=== PATIENT | male | born 1975 | race Caucasian/White ===

== ENCOUNTER 2020-10-13 19:51 | Emergency (ER) | payer OTHER, SELFPAY ==
[2020-10-13 19:57] VITALS: BP 170/114; PULSE 90; RESP 18; TEMP 36.7; O2SAT 98; BMI 36.9
--- NOTE | 2020-10-13 20:23 | CTR_ITS ---
PROCEDURE INFORMATION: Exam: CT Abdomen And Pelvis With Contrast Exam date and time: 10/13/2020 8:45 PM Age: 45 years old Clinical indication: Abdominal pain; Generalized; Prior surgery; Surgery type: Appy; Patient HX: Diffuse abd pain with diarrhea; Additional info: Pancreatitis vs sbo TECHNIQUE: Imaging protocol: Computed tomography of the abdomen and pelvis with intravenous contrast. Radiation optimization: All CT scans at this facility use at least one of these dose optimization techniques: automated exposure control; mA and/or kV adjustment per patient size (includes targeted exams where dose is matched to clinical indication); or iterative reconstruction. Contrast material: OMNI 300; Contrast volume: 95 ml; Contrast route: INTRAVENOUS (IV); COMPARISON: No relevant prior studies available. RADIATION DOSE METRICS: Total DLP (mGy-cm): 1896.23 FINDINGS: Liver: Normal. No mass. Gallbladder and bile ducts: Multiple gallstones within the gallbladder. Pancreas: Normal. No ductal dilation. Spleen: Normal. No splenomegaly. Adrenal glands: Normal. No mass. Kidneys and ureters: Normal. No hydronephrosis. Stomach and bowel: Mild bowel wall thickening in small bowel with mild congestion of the central mesenteric vascularity suggesting mild diffuse enteritis. Moderate diverticulosis. Appendix: No evidence of appendicitis. Intraperitoneal space: Unremarkable. No free air. No significant fluid collection. Vasculature: Unremarkable. No abdominal aortic aneurysm. Lymph nodes: Unremarkable. No enlarged lymph nodes. Urinary bladder: Unremarkable as visualized. Reproductive: Unremarkable as visualized. Bones/joints: Unremarkable. No acute fracture. Soft tissues: Unremarkable. CT/CT abdomen pelvis w con* [id number] IMPRESSION: 1. Multiple gallstones within the gallbladder. 2. Mild bowel wall thickening in small bowel with mild congestion of the central mesenteric vascularity suggesting mild diffuse enteritis. Radiation Dose CTDIVOL = (mGy): DLP = 1896.23 (mGy-cm)
--- NOTE | 2020-10-13 20:23 | W.ED.ABDPA2 ---
HPI - Abdominal Pain General: Chief Complaint: Abdominal Pain Stated Complaint: phy ref/bowel obstruction Time Seen by Provider: 10/13/20 20:03 Source: patient and family (spouse) Mode of arrival: ambulatory Limitations: no limitations History of Present Illness: HPI narrative: 45-year-old male patient presents to the emergency department due to abdominal pain. He reports abdominal pain, stomach pain for 1 week starting 10/08/2020; he reports onset of nausea that started this morning along with diarrhea, has experienced 6 episodes today.; he is employed by [employer] near [facility]; went to urgent care earlier today due to abdominal pain and was referred to the ED here in [place] for further work-up. He has previous history of appendicitis with appendectomy. He has not ate today, has attempted to drink several sips of coffee despite continued nausea. He denies fever or chills; he reports abdominal distention/bloating since abdominal pain began. He states was administered a GI cocktail today and is requesting another dose as this was helpful with his pain. He lives in [place]; serology work-up is available to me from [place].; lipase was noted to be 1246; CBC with white blood count 13.27; x-ray of the abdomen revealed abnormal bowel gas pattern with question of an early or incomplete small bowel obstruction. He states has been tested several times for Covid since abdominal pain began as he thought he could be infected; Covid screen completed today, rapid screen negative; results are not available in paper format. MD elicited complaint: abdominal pain (RUQ, middle abdomen) Onset (ago): day(s) (7) Location: Epigastric, Periumbilical and RUQ Severity: moderate Quality: cramping and sharp Migration to: RUQ Exacerbating factors: eating Relieving factors: rest Associated Symptoms: Reports anorexia, belching, bloating, chills, GI cramping, diarrhea, dyspepsia, heartburn, nausea and vomiting; Denies dysuria, fever(s), hematemesis and melena Treatments prior to arrival: antacids Review of Systems General: Reports: 10 or more systems reviewed and unremarkable except in HPI and below Const: Reports: chills; Denies: fever(s), fatigue, malaise or diaphoresis Eyes: Denies: blurry vision or eye redness ENMT: Denies: throat pain, dental pain or disequilibrium Card: Denies: chest pain, palpitations or irregular heart rhythm Resp: Denies: dyspnea, productive cough, non-productive cough or wheezing GI: Reports: abdominal pain, nausea, vomiting, heartburn, diarrhea, bloating, GI cramping and belching; Denies: hematemesis, early satiety, pain on defecation, rectal itching or melena : Denies: flank pain, dysuria, urinary urgency or difficulty starting urination Musc: Denies: neck pain, back pain, joint pain, muscle cramps or muscle weakness Skin/Breast: Denies: rash or pruritus Neuro: Denies: headache(s), weakness in extremities or behavioral changes Psych: Denies: anxiety, depression, hopelessness or irritability Saulo/Lymph: Denies: easy bruising PFSH ED PFSH: Medical History History of hemorrhoids HTN (hypertension) Surgical History History of appendectomy Social History (Updated 10/13/20 @ 20:34 by LESLIE Yo) Alcohol intake: current Alcohol intake frequency: 0-2 Drinks per Day Alcohol type: beer Caregiver/support person: Yes Lives independently: Yes Household members: spouse Housing: House Marital status: Physical Exam Const: COMMON NORMALS: no acute distress, average body habitus, patient oriented x3, healthy appearing and alert EXAM LIMITATIONS: no altered mental status, no behavioral limitations and no physical limitations GENERAL APPEARANCE: cooperative, comfortable, well kempt, well developed and well hydrated; not anxious, not combative and not ill appearing NUTRITIONAL APPEARANCE: obese ORIENTATION/CONSCIOUSNESS: Yes awake, Yes oriented to person, Yes oriented to place and Yes oriented to time; not confused and not patient obtunded HENMT: COMMON NORMALS: normocephalic, atraumatic, Normal external nose present and moist oral mucous membranes HEAD & SCALP: normal to inspection, normocephalic and atraumatic FACE & SINUS: normal facial exam and face symmetric; no sinus tenderness NOSE: Normal external nose present MOUTH: Normal oral and palatal mucosa present and tongue normal THROAT: posterior oropharynx normal and uvula midline Eye: COMMON NORMALS: Equal, round and reactive pupils present and EOMs intact bilaterally GENERAL EYE: appearance normal, both eyes and all related structures PUPIL: Yes Equal, round and reactive pupils present Neck/C-Spine: COMMON NORMALS: full ROM, no lymphadenopathy and supple GENERAL: Yes normal visual inspection and Yes trachea midline CERVICAL SPINE: Yes cervical ROM normal Lymph: LYMPHATIC: no lymphadenopathy noted Chest: COMMONS NORMALS: normal inspection of the chest and normal palpation of entire chest wall CHEST: No localized rib tenderness with anteroposterior compression Resp: COMMON NORMALS: normal respiratory effort, No retractions, No use of accessory muscles and clear to auscultation bilaterally EFFORT & INSPECTION: Yes able to speak in complete sentences, No respiratory distress, No pursed lip breathing, No labored and No audible wheezes AUSCULTATION: clear to auscultation bilaterally Cardio: COMMON NORMALS: regular rate, regular rhythm, S1 normal heart sound present, S2 normal heart sound present and Peripheral pulses 2+ throughout PALPATION: normal PMI RATE: regular rate RHYTHM: regular rhythm HEART SOUNDS: S1 normal heart sound present and S2 normal heart sound present PERIPHERAL PULSES: Peripheral pulses 2+ throughout GI: COMMON NORMALS: Soft to palpation INSPECTION: Yes normal to inspection, No abdominal wall ecchymosis, Yes central obesity, Yes scar and No striae AUSCULTATION: Yes Hypoactive bowel sounds present PALPATION: Yes Soft to palpation, Yes Tenderness to palpation present (GI) Details: LUQ and RUQ, No Hernia present, No Abdominal wall crepitus present and Yes Other GI palpation findings present (Positive Carmona's) : COMMON NORMALS: Yes no CVA tenderness BLADDER/KIDNEY EXAM: Yes no CVA tenderness Back/Pelvis: COMMON NORMALS: no CVA tenderness and thoracic and lumbar spine normal to inspection Extremity: COMMON NORMALS: normal to inspection and capillary refill normal Neuro: COMMON NORMALS: patient oriented x3 and no focal motor deficits SENSORIUM/ORIENTATION: Yes alert, Yes oriented to person, Yes oriented to place and Yes oriented to time Psych: COMMON NORMALS: mental status grossly normal, Normal thought process present and cooperative APPEARANCE: Yes well kempt ACTIVITY/MOTOR BEHAVIOR: Yes appropriate eye contact THOUGHT PROCESS: Normal thought process present Skin: COMMON NORMALS: no rashes or lesions noted and turgor normal GENERAL SKIN EXAM: no rashes or lesions noted and turgor normal Course Consultations: Consultation #1: Dr Moreno, 2050 - case discussed including findings from [facility] in [facility]; CT scan along with abnormal lab findings discussed. Advised patient may follow-up as an outpatient since he is improving; reports with CT findings of enteritis, states enteritis could be culprit of abdominal pain. Time: 20:50 Vital Signs: Vital signs: Vital Signs Temperature 98.1 F 10/13/20 19:57 Pulse Rate 74 10/13/20 22:47 Respiratory Rate 18 10/13/20 22:47 Blood Pressure 154/104 10/13/20 22:47 Pulse Oximetry 98 10/13/20 22:47 MDM - Abdominal Pain MDM Narrative: Medical decision making narrative: 45-year-old male patient presents to the emergency department with 1 week history of abdominal pain. Medical records from [facility] out of [facility] reviewed with abnormal lipase findings of 1246. KUB x-ray of the abdomen revealed questionable early or incomplete small bowel obstruction; lipase here in the ED slightly elevated 176; white blood count elevated 14.6; hemoglobin and hematocrit slightly elevated suggestive of mild dehydration; CT scan of the abdomen did not reveal acute pancreatitis; gallstones of the gallbladder noted along with mild bowel wall thickening and small bowel with mild congestion of the central mesenteric vascularity suggestive of mild diffuse enteritis; patient was administered Zofran here in the ED; resolution of abdominal pain and feeling better after Zofran administered. He is wanting to go home, does not wish to stay; spouse is at bedside and states he will rest well at home. I discussed with Dr. Moreno findings; advised patient may follow-up as an outpatient and considers enteritis most likely cause of abdominal pain he has experienced. Lipase could be variable. Patient will be discharged home with prescription of Zofran; advised to return to emergency department if he developed worsening abdominal pain; will send home on clear liquid diet along with bland diet and avoidance of alcohol. Differential Diagnosis: Differential diagnosis abdominal pain: Likely abdominal pain and gastroenteritis Medical Records: Attestation: I reviewed the patient's medical records. Lab Data: Attestation: I reviewed the patient's lab results. Labs: Lab Results 10/13/20 10/13/20 10/13/20 Range/Units 20:40 20:45 20:45 WBC 14.6 H (4.0-10.0) 10^3/ uL RBC 6.15 H (4.1-5.3) 10^6/u L Hgb 17.5 H (11.7-16.6) g/dL Hct 53.3 H (42.0-52.0) % MCV 86.7 (80-94) fL MCH 28.5 (28.0-34.0) pg MCHC 32.8 (30.0-36.0) g/dL RDW 14.1 (12.1-15.1) % Plt Count 299 (130-400) 10^3/c mm MPV 10.5 H (7.4-10.4) fL Neut % (Auto) 68.2 % Lymph % (Auto) 20.5 % [place] % (Auto) 7.8 % Eos % (Auto) 2.2 % Baso % (Auto) 0.6 % Neut # (Auto) 9.94 H (1.8-7.7) 10^3/u L Lymph # (Auto) 3.0 (0.8-4.8) 10^3/u L [place] # (Auto) 1.1 H (0.2-0.9) 10^3/u L Eos # (Auto) 0.3 (0.0-0.8) 10^3/u L Baso # (Auto) 0.1 (0.0-0.1) 10^3/u L Nucleated RBC % (a uto) 0 % Nucleated RBCs # 0.0 /100WBC Sodium 139 (136-145) mmol/L Potassium 3.8 (3.5-5.1) mmol/L Chloride 103 (98-107) mmol/L Carbon Dioxide 24 (22-29) mmol/L Anion Gap 15.8 (5-19) BUN 9 (6-20) mg/dL Creatinine 0.9 (0.7-1.2) mg/dL GFR Calculation 90.4 (90-130) mL/min Glucose 97 (65-115) mg/dL Calculated Osmolal ity 287 (285-295) mOsm/k g Calcium 8.8 (8.5-10.5) mg/dL Total Bilirubin 1.2 (0.15-1.2) mg/dL AST 33 (0-40) U/L ALT 72 H (0-41) U/L Alkaline Phosphata se 62 (40-130) IU/L Total Protein 7.3 (6.6-8.7) g/dL Albumin 4.2 (3.5-5.2) g/dL Globulin 3.1 (1.3-4.6) g/dL Lipase 174 H (13-60) U/L Urine Color Dark yellow (Yellow) Urine Appearance Clear (CLEAR) Urine pH 5.0 (5-7) Ur Specific Gravit y 1.030 (1.005-1.030) Urine Protein Trace (Negative) Urine Glucose (UA) Norm (Normal) Urine Ketones Negative (Negative) Urine Blood Neg (Negative) Urine Nitrate Negative (Negative) Urine Bilirubin Neg (Negative) Urine Urobilinogen Norm (Negative) mg/dL Ur Leukocyte Velma ase Negative (Negative) EKG Data ^: EKG 1: EKG interpretation date: 10/13/20 EKG interpretation time: 20:35 Prior EKG tracings: not available for review Other EKG comments: Ventricular rate 91; sinus rhythm; moderate voltage criteria for LVH, consider normal variant Discharge Plan Discharge Patient Disposition: Home Clinical Impression: Gastroenteritis Abdominal pain Qualifiers: Abdominal location: epigastric Qualified Code(s): R10.13 - Epigastric pain Cholelithiasis Qualifiers: Cholelithiasis location: gallbladder Cholecystitis presence: without cholecystitis Biliary obstruction: without biliary obstruction Qualified Code(s): K80.20 - Calculus of gallbladder without cholecystitis without obstruction Condition: Stable Prescriptions: New Zofran 4 mg tablet 4 mg PO Q4H 5 Days Qty: 14 RF: 0 Flagyl 500 mg tablet 500 mg PO TID 10 Days Qty: 30 RF: 0 ciprofloxacin HCl 500 mg tablet 500 mg PO BID Qty: 20 RF: 0 [facility] 10 billion cell -200 mg capsule 1 cap PO BID Qty: 30 RF: 0 pantoprazole 40 mg tablet,delayed release (DR/EC) 40 mg PO DAILY Qty: 14 RF: 0 Discharge Orders: Discharge ED (Routine); Ordered 10/13/20 Ordered By: Andreia Humphrey Discharge Diet: Advance as tolerated and Clear Liquid Discharge Activity: Limit activity as instructed Patient Instructions: Cholecystitis (ED), Clear Liquid Diet (ED), Abdominal Pain (ED) Activity Restrictions/Additional Instructions: Return to the emergency department if you develop worsening abdominal pain, nausea vomiting despite use of Zofran or other concerning symptoms public services assistant will be contacting you with a follow-up appointment with surgical services in regards to gallstones Take antibiotics until all gone, even if feeling better Clear liquid diet then advance as tolerated; avoid fried fatty greasy spicy foods until follow-up with surgical services has been completed No alcohol at all costs. Cannot use alcohol with use of Flagyl. Stand Alone Forms: Work/School Release Coding Level of Care Code ED Diathermy Equipment Repairer for Gianluca Fwd Exam Comprehensive
--- NOTE | 2020-10-13 20:26 | ECG_ITS ---
[facility] Test Date: 2020-10-13 Pat Name: Ronan Kenyon Department: Room: Gender: Male Human Resources Talent Manager: : 1975 Requested By: Andreia Mendez Order Number: [id number] Brady MD: Saad Aguilar M.D. Measurements Intervals [place] Rate: 91 P: 38 FL: 157 QRS: -14 QRSD: 90 T: 76 QT: 326 QTc: 402 Interpretive Statements SINUS RHYTHM MODERATE VOLTAGE CRITERIA FOR LVH, CONSIDER NORMAL VARIANT [MEETS CRITERIA IN ONE OF: R(aVL), S(V1), R(V5), R(V5/V6)+S(V1)] POSSIBLE ANTERIOR MYOCARDIAL INFARCTION , OF INDETERMINATE AGE [30 ms Q WAVE IN V3/V4, OR R < 0.2 mV IN V4] No previous ECG available for comparison Electronically Signed On 10-14-2020 19:13:30 EDUCATIONAL TECHNOLOGY SPECIALIST by Saad Aguilar M.D. [id number]
[2020-10-13 20:46] VITALS: BP 171/117; PULSE 92; RESP 18; O2SAT 99
[2020-10-13] MEDS: iohexol 300 mg/mL 100 mL Btl IV (20:46)
[2020-10-13] MEDS: ondansetron 2 mg/ML SDV 2 mL 4 MG IVP (20:47)
[2020-10-13 20:49] LABS: Add Urine Microscopic? NO
[2020-10-13] MEDS: sodium chloride 0.9% 500 ML 999 ML IV (20:49)
[2020-10-13 20:51] LABS: Bilirubin Urine Neg (Negative); Blood Urine Neg (Negative); Glucose Urine UA Norm (Normal); Ketones Urine Negative (Negative); Leukocyte Esterase Urine Negative (Negative); Nitrate Urine Negative (Negative); Protein Urine Trace (Negative); Urine Appearance Clear (CLEAR); Urine Color Dark Yellow (Yellow); Urobilinogen Urine Norm (Negative)
[2020-10-13 20:55] LABS: Basophils # 0.1 10^3/uL (0.0-0.1); Basophils % 0.6 %; Eosinophils # 0.3 10^3/uL (0.0-0.8); Eosinophils % 2.2 %; Hematocrit 53.3 % (42.0-52.0); Hemoglobin 17.5 g/dL (11.7-16.6); Lymphocytes % 20.5 %; Mean Corpuscular HGB Conc 32.8 g/dL (30.0-36.0); Mean Corpuscular Hemoglobin 28.5 pg (28.0-34.0); Mean Corpuscular Volume 86.7 fL (80-94); Mean Platelet Volume 10.5 fL (7.4-10.4); Monocytes # 1.1 10^3/uL (0.2-0.9); Monocytes % 7.8 %; Neutrophils # 9.94 10^3/uL (1.8-7.7); Neutrophils % 68.2 %; Nucleated Red Blood Cells % 0 %; Platelet Count 299 10^3/cmm (130-400); Red Blood Count 6.15 10^6/uL (4.1-5.3); Red Cell Distribution Width 14.1 % (12.1-15.1); White Blood Count 14.6 10^3/uL (4.0-10.0)
[2020-10-13 21:16] LABS: Alanine Aminotransferase 72 U/L (0-41); Albumin Level 4.2 g/dL (3.5-5.2); Alkaline Phosphatase 62 IU/L (40-130); Anion Gap 15.8 (5-19); Aspartate Amino Transferase 33 U/L (0-40); Blood Urea Nitrogen 9 mg/dL (6-20); Calcium 8.8 mg/dL (8.5-10.5); Carbon Dioxide 24 mmol/L (22-29); Chloride 103 mmol/L (98-107); Globulin 3.1 g/dL (1.3-4.6); Glomerular Filtration Rate 90.4 mL/min (90-130); Glucose 97 mg/dL (65-115); Lipase 174 U/L (13-60); Osmolality Calculated 287 mOsm/kg (285-295); Potassium 3.8 mmol/L (3.5-5.1); Sodium 139 mmol/L (136-145); Total Bilirubin 1.2 mg/dL (0.15-1.2); Total Protein 7.3 g/dL (6.6-8.7)
[2020-10-13 21:56] VITALS: BP 137/97; PULSE 76; RESP 16; O2SAT 97
[2020-10-13] MEDS: ciprofloxacin 500 mg Tablet PO (22:41)
[2020-10-13] MEDS: metroNIDAZOLE 500 MG Tablet PO (22:41)
[2020-10-13 22:47] VITALS: BP 154/104; PULSE 74; RESP 18; O2SAT 98
--- NOTE | 2020-10-17 15:29 | DCPLANNER ---
beauty shop manager had message to schedule a follow up appointment for patient with general surgery. beauty shop manager emailed patients information to Jaylyn at [facility] General Surgery. Patients information will be printed and reviewed. Clinic will call patient with appointment information.
--- NOTE | 2020-10-18 07:48 | DCPLANNER ---
Patient has a follow up appointment scheduled for Sunday, October 18, 2020 at 3:[address] Lopez. Clinic will call patient with appointment information.
--- NOTE | 2020-11-04 14:58 | DCPLANNER ---
Patient had a follow up appointment for patient with general surgery - patient did attend appointment.
== END 2020-10-13 22:49 | disposition home or self-care (01) ==
PROVIDERS: Emergency Provider Nurse Practitioner Family
DX: K80.20 Calculus of gallbladder without cholecystitis without obstruction (principal); K52.9 Noninfective gastroenteritis and colitis, unspecified; I10 Essential (primary) hypertension
CPT/HCPCS: 12345; 74177; 80053; 81003; 83690; 85025; 93005; 96374; 99283; J2405; J7040; Q9967

== ENCOUNTER → 2020-10-28 16:02 | Outpatient (BNVA) | payer OTHER, SELFPAY | PROVIDERS: Visit Provider Surgery | DX: Z01.812 Encounter for preprocedural laboratory examination (principal); K80.20 Calculus of gallbladder without cholecystitis without obstruction | CPT/HCPCS: 87635 ==

== ENCOUNTER 2020-11-02 07:06 | Day surgery (SDC) | payer OTHER, SELFPAY ==
[2020-11-01 10:51] VITALS: BMI 35.5
[2020-11-02] VITALS (7 sets, daily range): BP systolic 105–158; BP diastolic 51–88; PULSE 64–98; RESP 14–20; TEMP 36.6–36.8; O2SAT 92–100
[2020-11-02] MEDS: sodium chloride 0.9% 1,000 ML 30 ML IV (07:57)
--- NOTE | 2020-11-02 08:59 | W.PM.OPSUD ---
Surgery/Procedure H&P Update DATE OF PROCEDURE: November 02, 2020 DATE H&P PERFORMED: 10/18/19 H&P UPDATE INFORMATION: I have reviewed H&P completed within last 30 days, I have examined patient prior to procedure and No changes to prior documentation PREOP DIAGNOSIS: Cholelithiasis PLANNED PROCEDURE: Operation Date: 11/02/20 08:40 Proposed Procedures p Laparoscopic Cholecystectomy 22633 K80.20(Not Applicable) - Misbah Lopez MD
--- NOTE | 2020-11-02 09:08 | ANES.PREANE2 ---
Pre-Anesthetic Assessment Pre-Anesthetic Assessment: Height/Weight: Height 1.8 m Weight 115.666 kg Temp Pulse Resp BP Pulse Ox 97.9 F 98 18 158/62 100 11/02/20 07:58 11/02/20 07:58 11/02/20 07:58 11/02/20 07:58 11/02/20 07:58 Preop Diagnosis: Cholelithiasis Proposed Procedure: Operation Date: 11/02/20 08:40 Proposed Procedures p Laparoscopic Cholecystectomy 35706 K80.20(Not Applicable) - Misbah Lopez MD Was Beta Esan taken within 24 hours: N/A Last intake: Intake Last Liquid Date 11/01/20 Last Liquid Time 23:00 Last Solid Date 11/01/20 Last Solid Time 18:00 Social: Social History: No alcohol and No tobacco Exam: Pre-Anes Outpt Exam: alert, oriented x 3, clear to auscultation bilaterally and regular rate & rhythm Airway: Submandibular: WNL Cervical ROM: WNL MP: 2 Dentition: Full GI: GI: GERD Metabolic: Metabolic: Morbid obesity Anesthetic Plan: ASA status: 3 Anesthesia: General Risk of > 500 ml blood loss (7ml/kg in children): No Meds/Allergies Current Medications: Current Medications Generic Name Dose Route Start Last Admin Trade Name Freq PRN Reason Stop Dose Admin Sodium Chloride 1,000 mls @ 30 ml s/hr 11/02/20 07:15 11/02/20 07:57 Sodium Chloride 0.9% IV 11/03/20 07:14 30 mls/hr .Q24H STACIE Administration PFSH Anesthesia PFSH: Medical History History of hemorrhoids HTN (hypertension) Surgical History History of appendectomy Social History (Updated 10/13/20 @ 20:34 by LESLIE Yo) Alcohol intake: current Alcohol intake frequency: 0-2 Drinks per Day Alcohol type: beer Caregiver/support person: Yes Lives independently: Yes Household members: spouse Housing: House Marital status: Data Anesthesia Cardiac Studies: No Data to Display
--- NOTE | 2020-11-02 10:45 | PM.OP ---
Operative Report Date of procedure: November 02, 2020 Pre-op Diagnosis: Cholelithiasis Post-op diagnosis: same Procedure Done: Laparoscopic cholecystectomy Surgeon: Misbah Lopez Anesthesia: General Condition: stable Disposition: PACU Procedure: The patient was taken to the operating room and was intubated under general anesthesia. After the antibiotic had been administered, the abdomen was prepped and draped in a sterile manner. Using a #15 blade, a 1 centimeter infraumbilical curvilinear incision was made and using an open Cynthia technique the peritoneal cavity was entered. A 10 millimeter port was placed and 15 millimeters of pneumoperitoneum was created. A 10 millimeter, 30 degrees scope was then introduced. Three 5 millimeter ports were placed in the epigastric, midclavicular and the anterior axillary line two fingerbreadths below the costal margin on the right side under the direct visualization. Ratcheted forceps were introduced into the lateral most port and was used to retract the fundus of the gallbladder cephalad and using forceps the infundibulum of the gallbladder was retracted laterally. Using L-hook cautery the peritoneum overlying the Calot's triangle was opened medially and laterally until the cystic duct and the cystic artery were skeletonized. Dissection was carried along the body of the gallbladder and after ensuring critical view of safety, 4 clips applied on the cystic duct and 3 clips applied on the cystic artery and cut leaving, 3 clips on the remaining portion of the duct and 2 clips on the remaining portion of the artery. The rest of the gallbladder was dissected off the liver using L-hook cautery. There was small amount of bile leakage of the body of the gallbladder which was irrigated and suctioned out. There was no bleeding or bile leaking noted from the gallbladder fossa and the clips appeared to be in place. An EndoCatch bag was introduced to remove the gallbladder. All the ports were removed under direct visualization and there was no bleeding noted from the port sites. The fascia of the umbilicus was closed using [id number] 0 Vicryl sutures and the subcutaneous tissue was approximated using 3-0 Vicryl sutures. The skin at all four ports were closed using 4-0 Monocryl and Dermabond. A total of 10 millimeters of 0.5% Marcaine was infiltrated around the port sites. The patient was stable throughout the procedure.
[2020-11-02] MEDS: HYDROcodone-acetaminophen 5-325 mg Tablet 1 TAB PO (11:34)
--- NOTE | 2020-11-02 11:54 | ANE.PACU2 ---
Inpatient post-anesthesia follow up: Airway intact: Yes Vital signs: Temperature 98.2 F Pulse Rate 66 Respiratory Rate 18 Blood Pressure 136/88 Pulse Oximetry 96 Oxygen Delivery Me thod Room Air Oxygen Flow Rate 6 Fraction of Inspir ed Oxygen Hydration adequate: Yes Nausea and vomiting: No Pain level: 1 Mental status: Baseline
== END 2020-11-02 11:43 | disposition home or self-care (01) ==
PROVIDERS: Visit Provider Surgery
PROC: 0FT44ZZ Resection of Gallbladder, Percutaneous Endoscopic Approach (ICD-10-PCS; CPT 47562; principal; 2020-11-02 08:40)
DX: K80.10 Calculus of gallbladder with chronic cholecystitis without obstruction (principal); K21.9 Gastro-esophageal reflux disease without esophagitis; E66.01 Morbid (severe) obesity due to excess calories; Z68.35 Body mass index [BMI] 35.0-35.9, adult
CPT/HCPCS: 47562; 12345; 88304; J0330; J0690; J1100; J1885; J2405; J2704; J3010; J3490; J7030

== ENCOUNTER → 2020-12-14 16:23 | Outpatient (BNVA) | payer OTHER, SELFPAY | PROVIDERS: Visit Provider Nurse Practitioner Family | DX: Z79.899 Other long term (current) drug therapy (principal); E07.9 Disorder of thyroid, unspecified; R53.83 Other fatigue; E34.9 Endocrine disorder, unspecified; G47.30 Sleep apnea, unspecified; D64.9 Anemia, unspecified; E55.9 Vitamin D deficiency, unspecified | CPT/HCPCS: 82306; 83036; 83550; 83921; 84402; 84403; 84439; 84443; 84481; 85025 ==

== ENCOUNTER → 2021-07-07 11:47 | Outpatient (BNVA) | payer OTHER, SELFPAY | PROVIDERS: Visit Provider Nurse Practitioner Family | DX: E34.9 Endocrine disorder, unspecified (principal) | CPT/HCPCS: 80053; 84402; 84403; 85025 ==

== ENCOUNTER → 2021-07-17 13:39 | Outpatient (BNVA) | payer OTHER, SELFPAY | PROVIDERS: PCP Nurse Practitioner Family; Visit Provider Nurse Practitioner Family | DX: Z20.822 Contact with and (suspected) exposure to COVID-19 (principal) | CPT/HCPCS: 87635 ==

== ENCOUNTER → 2021-12-05 10:15 | Outpatient (BNVA) | payer OTHER, SELFPAY | PROVIDERS: PCP Nurse Practitioner Family; Visit Provider Nurse Practitioner Family | DX: E34.9 Endocrine disorder, unspecified (principal) | CPT/HCPCS: 84402; 84403 ==

== ENCOUNTER → 2022-01-31 16:27 | Outpatient (BNVA) | payer OTHER, SELFPAY | PROVIDERS: PCP Nurse Practitioner Family; Visit Provider Nurse Practitioner | DX: D17.9 Benign lipomatous neoplasm, unspecified (principal); M25.519 Pain in unspecified shoulder; G47.30 Sleep apnea, unspecified; K92.1 Melena; R53.83 Other fatigue | CPT/HCPCS: 84443 ==

== ENCOUNTER → 2022-03-21 15:20 | Outpatient (BNVA) | payer OTHER, SELFPAY | PROVIDERS: PCP Nurse Practitioner Family; Visit Provider Nurse Practitioner Family | DX: R05.9 Cough, unspecified (principal) | CPT/HCPCS: 71046 ==

== ENCOUNTER → 2022-09-25 09:14 | Outpatient (BNVA) | payer OTHER, SELFPAY | PROVIDERS: Visit Provider Nurse Practitioner | DX: E34.9 Endocrine disorder, unspecified (principal); J20.9 Acute bronchitis, unspecified; J10.1 Influenza due to other identified influenza virus with other respiratory manifestations | CPT/HCPCS: 84403 ==

== ENCOUNTER → 2023-01-03 11:27 | Outpatient (BNVA) | payer BC, SELFPAY | PROVIDERS: PCP Nurse Practitioner; Visit Provider Nurse Practitioner | DX: E34.9 Endocrine disorder, unspecified (principal) | CPT/HCPCS: 84403 ==

== ENCOUNTER → 2025-07-20 09:36 | Outpatient (BNVA) | payer OTHER, SELFPAY | PROVIDERS: PCP Nurse Practitioner Family; Visit Provider Nurse Practitioner Family | DX: I10 Essential (primary) hypertension (principal); E34.9 Endocrine disorder, unspecified; E55.9 Vitamin D deficiency, unspecified; Z79.899 Other long term (current) drug therapy; R53.83 Other fatigue | CPT/HCPCS: 80053; 80061; 81003; 82306; 83036; 84439; 84443; 85025; G0103 ==